=== PATIENT | female | born 2000 | race Caucasian/White ===

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

== ENCOUNTER 2019-05-25 16:49 | Emergency (ER) | payer BC ==
--- OUTSIDE RECORDS SUMMARY | 2019-05-25 16:55 | XMS REPORT | Continuity of Care Document ---
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 Problems Provider Date Uncomplicated moderate persistent Eileen DallinAndie Xiestermacher, RPA-C Onset: 2017 asthma Mild intermittent asthma Eileen SAndie Xiestermacher, RPA-C Onset: 12/15/2016 Uncomplicated moderate persistent Eileen SAndie Xiestermacher, RPA-C Onset: 2015 asthma Allergic rhinitis Eileen Hendricksermacher, RPA-C Onset: 08/22/2015 Allergic rhinitis due to pollen Eileen Hendricksermbillie, RPA-C Onset: 2015 Social History Type Date Description Comments Sex Unknown Tobacco Use Start: Unknown Patient has never smoked Tobacco Use Start: Unknown No Second Hand Smoke Exposure Smoking Status Reviewed: 05/23/19 No Second Hand Smoke Exposure Allergies, Adverse Reactions, Alerts Active Allergies Reaction Severity Comments Date Cefixime 07/04/2015 Codeine 07/04/2015 Suprax 06/14/2014 Codeine Phosphate 04/18/2013 Medications Active Medications SIG Qnty Indications Ordering Provider Date Dulera Inhale 2 puffs by 13gm J45.40 Brian Domingo 02/22/2018 200-5mcg/Act inhalation route MD Ruslan Aerosol 2 times per day in the morning and evening. Rinse mouth after use. Nasonex spray 2 sprays in 1units J30.1 Brian Domingo 12/15/2016 50mcg/Act each nostril by MD Ruslan Suspension intranasal route once daily. Zyrtec Allergy Take one tablet 30tabs J30.1 Darrylkemier A. 12/15/2016 10mg by mouth daily as MD Ruslan Tablets needed. Xopenex HFA inhale 2 puffs 15gm Christopher A. 12/15/2013 45mcg/Act (90 mcg) by MD Ruslan Aerosol inhalation route every 4-6 hours as needed. Acyclovir Unknown Lansoprazole Take 1 Capsule By Unknown 30mg Mouth Every Day Capsules DR Orozco Description No Information Available Vital Signs Date Vital Result Comment 05/23/2019 9:57am BP Systolic 117 mmHg BP Diastolic 69 mmHg Height 60.5 inches 5'0.50" Weight 122.00 lb BMI (Body Mass Index) 23.4 kg/m2 Heart Rate 84 /min Respiratory Rate 18 /min Body Temperature 98.3 F O2 % BldC Oximetry 98 % 10/04/2018 9:51am BP Systolic 109 mmHg BP Diastolic 70 mmHg Height 60.5 inches 5'0.50" Weight 123.00 lb BMI (Body Mass Index) 23.6 kg/m2 Heart Rate 80 /min Respiratory Rate 20 /min Body Temperature 98.9 F O2 % BldC Oximetry 99 % Results Description No Information Available Procedures Date Code Description Status 05/23/2019 73900 Nitric Oxide Gas Determination Completed 05/23/2019 05793 Bronchodilation Responsiveness Spirometry Pre/Post Completed Bronchodil Adm Medical Devices Description No Information Available Encounters Type Date Location Provider Dx Diagnosis Office Visit 05/23/2019 Deane Eileen Leos J45.40 Moderate persistent 10:00a Fenstermacher, asthma, uncomplicated [facility] J30.1 Allergic rhinitis due to pollen J30.89 Other allergic rhinitis Assessments Date Code Description Provider 05/23/2019 J45.40 Moderate persistent asthma, RADHA Wong uncomplicated 05/23/2019 J30.1 Allergic rhinitis due to pollen CONOR Wong 05/23/2019 J30.89 Other allergic rhinitis RADHA Wong Plan of Treatment Future Appointment(s):10/19/2019 8:30 am - RADHA Wong at [facility]/07/2020 - Eileen Lynn, CON[facility]-CJ45.40 Moderate persistent asthma, uncomplicatedComments:Today's PFT is borderline normal. I have advised Nuvia to restart Dulera and use the ICS/LABA more consistently. Continue to carry Xopenex and use as needed for breakthrough asthma symptoms.Follow up:6 months - w/PFT and NIOXJ30.1 Allergic rhinitis due to pollenComments:Restart Nasonex. Continue Zyrtec as needed for breakthrough nasal allergy symptoms. Continue environmental controls for dust and dust mites. 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
[2019-05-25 17:03] VITALS: BP 137/91
--- NOTE | 2019-05-25 17:18 | UC ---
Throat Pain/Nasal Tre HPI - HPI Summary HPI Summary: Pt presents with c/o nasal congestion sinus pressure X 5 days. Pt has hx of frequent sinus infections and believes she has one now. - History of Current Complaint Chief Complaint: UCGeneralIllness Stated Complaint: SINUS Time Seen by Provider: 05/25/19 16:58 Hx Obtained From: Patient Hx Last Menstrual Period: current ?: No Onset/Duration: Sudden Onset, Lasting Days, Still Present Severity: Moderate Pain Intensity: 6 Associated Signs & Symptoms: Positive: Sinus Discomfort, Fever - subjective Related History: Seasonal Allergies - Epiglottits Risk Factors Epiglottis Risk Factors: Negative - Allergies/Home Medications Allergies/Adverse Reactions: Allergies Allergy/AdvReac Type Severity Reaction Status Date / Time codeine Allergy Rash Verified 05/25/19 16:59 oseltamivir [From Tamiflu] Allergy Altered Verified 05/25/19 16:59 Mental Status SUPREX Allergy Intermediate Rash Uncoded 05/25/19 16:59 Home Medications: Home Medications Lansoprazole 15 mg PO DAILY 05/25/19 [History Confirmed 05/25/19] PMH/Surg Hx/FS Hx/Imm Hx Previously Healthy: Yes - Surgical History Surgical History: Yes Surgery Procedure, Year, and Place: T & A. EAR TUBES - Family History Known Family History: Positive: Hypertension Negative: Cardiac Disease, Diabetes - Social History Occupation: Student Lives: With Family Alcohol Use: Occasionally Substance Use Type: None Smoking Status (MU): Never Smoked Tobacco Have You Smoked in the Last Year: No - Immunization History Vaccination Up to Date: Yes Review of Systems All Other Systems Reviewed And Are Negative: Yes Constitutional: Positive: Fever, Chills Skin: Positive: Negative Eyes: Positive: Negative ENT: Positive: Sinus Congestion, Sinus Pain/Tenderness Respiratory: Positive: Negative Cardiovascular: Positive: Negative Gastrointestinal: Positive: Negative Genitourinary: Positive: Negative Motor: Positive: Negative Neurovascular: Positive: Negative Musculoskeletal: Positive: Negative Neurological: Positive: Headache Psychological: Positive: Negative Is Patient Immunocompromised?: No Physical Exam Triage Information Reviewed: Yes Appearance: Ill-Appearing Vital Signs: Initial Vital Signs Temp 98.6 F 05/25/19 16:57 Pulse 80 05/25/19 16:57 Resp 14 05/25/19 16:57 BP 137/91 05/25/19 16:57 Pulse Ox 100 05/25/19 16:57 Vital Signs Reviewed: Yes Eye Exam: Normal ENT: Positive: Nasal congestion, Sinus tenderness Dental Exam: Normal Neck exam: Normal Respiratory Exam: Normal Cardiovascular Exam: Normal Musculoskeletal Exam: Normal Neurological Exam: Normal Psychological Exam: Normal Skin Exam: Normal Throat Pain/Nasal Course/Dx - Differential Dx/Diagnosis Differential Diagnosis/HQI/PQRI: Influenza, Sinusitis, URI Provider Diagnosis: Sinusitis Discharge ED - Sign-Out/Discharge Documenting (check all that apply): Patient Departure All imaging exams completed and their final reports reviewed: No Studies - Discharge Plan Condition: Stable Disposition: HOME Prescriptions: Amoxicillin PO (*) [Amoxicillin 875 MG (*)] 875 mg PO Q12H #20 tab Guaifenesin/Pseudoephedrne HCl [Mucinex D ER 600-60 mg Tablet] 1 each PO Q12H # 14 tab.er.12h Patient Education Materials: Sinusitis (ED) Referrals: Mary Garcia PA [Primary Care Provider] - If Needed Additional Instructions: Please follow up with your PCP as needed. - Billing Disposition and Condition Condition: STABLE Disposition: Home - Attestation Statements Provider Attestation: Per institutional requirements, I have reviewed the chart, however, I was not consulted specifically or made aware of this patient by the midlevel provider. I did not personally evaluate, interact with , or disposition this patient. EK
== END 2019-05-25 17:16 | disposition home or self-care (01) ==
LOC: UCCORT 16:49
DX: J32.9 Chronic sinusitis, unspecified (principal); Z88.5 Allergy status to narcotic agent; Z88.8 Allergy status to other drugs, medicaments and biological substances
CPT/HCPCS: 99212; G0463